=== PATIENT | male | born 1985 ===

== ENCOUNTER 2021-03-06 11:55 | Emergency (ER) | payer OTHER ==
[~2021-03-06] VITALS: Ht 175.3 cm; Wt 81.8 kg
--- NOTE | 2021-03-06 12:22 | NUR ---
FELL OFF LADDER FRONT L RIBS. 4 FT DOWN ON TOP OF RAILING. 2 HOURS AGO. SOME DIFF BREATHING WHEN MOVING. PT ATTACHED TO MONITORS. VSS. REYES. GIRL FRIEND AT BEDSIDE. DR. ROGERS TO BEDSIDE FOR EVALUATION.
[2021-03-06] MEDS ORDERED: KETOROLAC 30 MG/1 ML IM ONE (12:30)
[2021-03-06] MEDS ORDERED: KETOROLAC 60 MG/2 ML ONE (12:55)
[2021-03-06 13:01] VITALS: BP 119/74
--- NOTE | 2021-03-06 13:02 | NUR ---
PT MEDICATED PER EMAR. SITTING UP IN BED. NADN. VSS.
--- NOTE | 2021-03-06 13:55 | NUR ---
Patient/Caregiver given discharge instructions and they have confirmed that they understand the instructions. Patient ambulatory with steady gait.
== END 2021-03-06 13:56 | disposition home or self-care (01) ==
LOC: ED 13:06
DX: S20.212A Contusion of left front wall of thorax, initial encounter (principal); W11.XXXA Fall on and from ladder, initial encounter; Y93.89 Activity, other specified; Y92.009 Unspecified place in unspecified non-institutional (private) residence as the place of occurrence of the external cause; Y99.8 Other external cause status
CPT/HCPCS: 71101; 96372; 99283; J1885